=== PATIENT | female | born 1995 | race American Indian/Alaskan Native ===

== ENCOUNTER 2017-05-11 22:00 | Emergency (ER) | payer SELFPAY ==
[2017-05-11 22:06] VITALS: BP 137/74
== END 2017-05-12 06:16 | disposition left against medical advice (07) ==
LOC: ED 22:00
DX: Z04.1 Encounter for examination and observation following transport accident (principal); Z53.21 Procedure and treatment not carried out due to patient leaving prior to being seen by health care provider